=== PATIENT | male | born 1995 | race Caucasian/White ===

== ENCOUNTER 2017-07-07 14:45 | Emergency (ER) | payer OTHER | END 2017-07-07 16:01 | disposition other institution (70) | LOC: ED 14:45 | DX: Z02.89 Encounter for other administrative examinations (principal); S02.2XXA Fracture of nasal bones, initial encounter for closed fracture; S20.212A Contusion of left front wall of thorax, initial encounter; S80.02XA Contusion of left knee, initial encounter; Y33.XXXA Other specified events, undetermined intent, initial encounter; Y93.89 Activity, other specified; Y99.8 Other external cause status; Y92.89 Other specified places as the place of occurrence of the external cause ==

== ENCOUNTER 2017-07-07 14:45 | Emergency (ER) | payer OTHER ==
[2017-07-07 16:01] VITALS: BP 134/82
== END 2017-07-07 16:01 | disposition other institution (70) ==
LOC: ED 14:45
DX: S02.2XXA Fracture of nasal bones, initial encounter for closed fracture (principal); S20.212A Contusion of left front wall of thorax, initial encounter; S80.02XA Contusion of left knee, initial encounter; S80.01XA Contusion of right knee, initial encounter; Y33.XXXA Other specified events, undetermined intent, initial encounter; Y93.89 Activity, other specified; Y99.8 Other external cause status; Y92.89 Other specified places as the place of occurrence of the external cause